=== PATIENT | female | born 1985 | race Caucasian/White ===

== ENCOUNTER 2018-03-03 19:24 | Emergency (ER) | payer OTHER ==
[~2018-03-03] VITALS: Ht 165.1 cm; Wt 63.5 kg
[2018-03-03 20:05] VITALS: BP 146/79
== END 2018-03-03 20:07 | disposition home or self-care (01) ==
LOC: M.ERS 19:24
DX: L98.8 Other specified disorders of the skin and subcutaneous tissue (principal); Z71.1 Person with feared health complaint in whom no diagnosis is made